=== PATIENT | male | born 1950 | race Caucasian/White ===

== ENCOUNTER 2022-07-03 14:41 | Emergency (ER) | payer OTHER, SELFPAY ==
[2022-07-03 14:44] VITALS: BP 126/94; PULSE 89; RESP 18; TEMP 36.6; O2SAT 97; BMI 33.0
--- NOTE | 2022-07-03 15:13 | NURSING ---
ICU TERELETSKY HYPOGLYCEMIA
--- NOTE | 2022-07-03 15:50 | RAD_ITS ---
EXAM: XR CHEST, 2 VIEWS CLINICAL INDICATION: cough TECHNIQUE: Frontal and lateral views of the chest. This report was created using [employer] report generation technology. COMPARISON: None. FINDINGS: LUNGS AND PLEURAL SPACES: Unremarkable. No consolidation or edema. No pneumothorax. No effusion. HEART: Unremarkable. Cardiac silhouette not enlarged. MEDIASTINUM: Central airways and mediastinal contour are unremarkable. BONES/JOINTS: There is a metal sideplate transfixing the right clavicle. There are cortical screws holding the plate in place. SOFT TISSUES: Unremarkable. RAD/Chest PA and Lateral IMPRESSION: No acute findings in the chest. Electronically Signed: Gilberto Corral MD at 16:11 EDT ,
--- NOTE | 2022-07-03 16:18 | EX.ED.DYSGE1 ---
HPI History of Present Illness Chief Complaint: Shortness of Breath Narrative Narrative: Patient is a very pleasant 72-year-old male who is presenting to the ER today with chief complaint of cough and congestion for the past 10 days. Patient has taken nothing mdjz-fsx-xobiqtd medication rodriguez until yesterday where he did a okwh-ssu-znufcbj cold and cough medication yesterday and today. Patient has no headache, no neck pain. No fever or chills. Patient has no abdominal pain, nausea or vomiting. Patient has no lung history. He has never been a smoker. Patient has no history of asthma or COPD. Patient has no recent traveling. Patient's was just admitted to the hospital on Friday for pneumonia. Patient's had pneumonia and Ace human pneumo virus as well. Patient's daughter is at bedside. Patient has no chest pain, no chest tightness. No chest wall pain. No shortness of breath, no other acute complaints. PFSH PFSH Home Medications albuterol sulfate 2.5 mg/3 mL (0.083 %) solution for nebulization 2.5 mg (3 mL) inhalation Q4H PRN #25 vials 07/03/22 [Rx Last Taken Unknown] amoxicillin 875 mg-potassium clavulanate 125 mg tablet 875 mg PO Q12H #20 TABLETS 07/03/22 [Rx Last Taken Unknown] prednisone 20 mg tablet 40 mg PO DAILY #10 TABLETS 07/03/22 [Rx Last Taken Unknown] Allergy/AdvReac Type Severity Reaction Status Date / Time lisinopril Allergy Other Verified 07/03/22 14:46 Social History Smoking Status: Never smoker ROS ROS ED ROS Narrative REVIEW OF SYSTEMS: Unless otherwise stated in this report the patient's positive and negative responses for review of systems for constitutional, eyes, ENT, cardiovascular, respiratory, gastrointestinal, neurological, , musculoskeletal, and integument systems and related systems to the presenting problem are either stated in the history of present illness or were not pertinent or were negative for the symptoms and/or complaints related to the presenting medical problem. EXAM Physical Exam Narrative Exam Narrative: Vital signs reviewed and patient is not hypoxic. General: The patient appears well and in no apparent distress. Patient is resting comfortably on cart. Not toxic, lethargic, or listless. Skin: Warm, dry, no pallor noted. There is no rash noted. Head: Normocephalic, atraumatic Eye: Normal conjunctiva, no drainage, EOMI. PERRL. Patient has subconjunctival hemorrhage in the left eye. Patient has remote history of left eye cancer, he just had an injection in his left eye to help decrease fluid. No acute findings to the left eye, this has been ongoing. Patient is currently under guidance from multiple eye physicians. Ears, Nose, Mouth, and Throat: oral mucosa is moist. Nares patent. Mouth without vesicles. Ear canals patent. Tm's without Erythema Cardiovascular: Regular Rate and Rhythm, no murmurs, gallops, or rubs Respiratory: Patient is in no distress, no accessory muscle use, lungs are equal bilateral, faint wheezing diffusely, patient has mild rhonchi bilateral lower lobes, no crackles, no rales. Back: non-tender, no CVA tenderness bilaterally to percussion. NO CTLS midline or paracervicl tenderness to palpation. GI: Soft, no tenderness to palpation Musculoskeletal: The patient has full range of motion of all extremities and joints with no difficulty. Patient has no motor, no sensory deficits. Neurological: A&O x4, normal speech, no focal neurological deficits. Psychiatric: Cooperative Const Vital Signs: 07/03/22 14:44 07/03/22 15:01 Temperature 97.8 F Temperature Source Temporal Pulse Rate 89 Respiratory Rate 18 Respiratory Effort Normal Non-Labored Respiratory Depth Normal Respiratory Pattern Normal Blood Pressure 126/94 H Blood Pressure Mean 104 Pulse Ox 97 Oxygen Delivery Method Room Air Room Air MDM MDM Radiography Chest X-Ray - ED: 2 View (Chest x-ray shows no acute cardiopulmonary disease, no infiltrate, no effusion.) and Read by ED Physician Diagnostic Testing: Clinical Impression(s) from Imaging Studies Chest X-Ray 07/03/22 15:50 IMPRESSION: No acute findings in the chest. Electronically Signed: Gilberto Corral MD at 16:11 EDT , Differential Diagnosis Chest pain/SOB: pneumonia and CHF Treatment and Re-Evaluation Comments:: Patient will be sent home with prescription for Augmentin for sinusitis for 10 days, along with 5 days of prednisone and also albuterol inhaler. Patient will start using DayQuil, NyQuil, and Flonase. Patient also continue vrnu-jci-ijalakq cold and cough medication. If patient does not use DayQuil or NyQuil, he was instructed to use either Claritin or Zyrtec in the morning and Benadryl at nighttime. Patient looks well. questions at disposition. Patient will follow-up with PCP. Discharge Plan Triage Chief Complaint: Shortness of Breath ED Provider: Noe Mello Dx/Rx/DC Orders Clinical Impression: Cough, Sinusitis, Reactive airway disease, Diffuse wheezing Instructions: ED Upper Resp Infec Abx Tx, ED Sinusitis (Antibiotic Treatment) Prescriptions: New amoxicillin-pot clavulanate 875-125 mg tablet 875 mg PO Q12H Qty: 20 0RF albuterol sulfate 2.5 mg /3 mL (0.083 %) solution for nebulization 2.5 mg inhalation Q4H PRN Qty: 25 0RF Rx Instructions: Use q4 hours and PRN for wheezing prednisone 20 mg tablet 40 mg PO DAILY Qty: 10 0RF Primary Care Provider: [facility] Referrals: [place] [Primary Care Provider] - 3-5 Days Activity Restrictions/Additional Instructions: Use ojqt-[id number]-[id number] DayQuil, NyQuil, and Flonase. As discussed, if you do not want to do DayQuil and NyQuil because your blood pressure short-term, you could use Claritin or Zyrtec in the morning and Benadryl at nighttime. Continue using ahtl-liq-oxwsjhp cold and cough Mucinex. Use Tylenol Motrin as needed for pain. Take all of antibiotic and steroids, also use inhaler every 4 hours while awake. Follow-up with PCP. A copy of your x-ray report was given to you, you do not have pneumonia. Disposition Disposition: Home, Self Care
[2022-07-03 16:41] VITALS: RESP 18
== END 2022-07-03 16:55 | disposition home or self-care (01) ==
PROVIDERS: Emergency Provider Emergency Medicine; Visit Provider Emergency Medicine
DX: J45.909 Unspecified asthma, uncomplicated (principal); J32.9 Chronic sinusitis, unspecified
CPT/HCPCS: 71046; 99282